=== PATIENT | male | born 1955 | race Caucasian/White ===

== ENCOUNTER 2021-12-25 09:09 | Emergency (ER) | payer OTHER ==
[~2021-12-25] VITALS: Ht 167.6 cm; Wt 72.6 kg
[~2021-12-25 09:09] MED LIST: Bactrim Ds Tab1 EACH PO; LISI20 PO; Norco 5-325 Ta1 EACH PO
[2021-12-25 10:58] LABS: BASOPHILS ABSOLUTE AUTO 0.06 K/mm3 (0.00-0.23); BASOPHILS PERCENT AUTO 1 % (0-2); EOSINOPHILS ABSOLUTE AUTO 0.02 K/mm3 (0.00-0.68); EOSINOPHILS PERCENT AUTO 0 % (0-6); Hemoglobin 13.3 g/dL (13.5-17.5); IMMATURE GRAN ABSOLUTE AUTO 0.03 K/mm3 (0.00-0.10); IMMATURE GRAN PERCENT AUTO 0 % (0-1); LYMPHOCYTES ABSOLUTE AUTO 1.58 K/mm3 (0.84-5.20); LYMPHOCYTES PERCENT AUTO 15 % (21-46); MONOCYTES ABSOLUTE AUTO 1.34 K/mm3 (0.16-1.47); MONOCYTES PERCENT AUTO 13 % (4-13); Mean Corpuscular Volume 89 fL (80-100); NEUTROPHILS ABSOLUTE AUTO 7.38 K/mm3 (1.96-9.15); NEUTROPHILS PERCENT AUTO 71 % (41-73); Platelet Count 330 K/mm3 (150-400); RDW Coefficient Variation 12.4 % (11.7-14.2); RDW Standard Deviation 40.1 fL (35.1-46.3); Red Blood Cell Count 4.29 M/mm3 (4.30-5.90); White Blood Cell Count 10.41 K/mm3 (4.00-11.30)
[2021-12-25 11:01] LABS: International Normalized Ratio 0.97; Prothrombin Time Results 10.2 Sec (9.7-11.5)
[2021-12-25 11:04] LABS: Alanine Aminotransfer (ALT/SGP 20 U/L (12-78); Albumin, Blood 3.1 g/dL (3.4-5.0); Albumin/Globulin Ratio 0.7 (0.8-1.8); Alk Phos 63 U/L (50-136); Anion Gap 8 mmol/L (6-16); Aspartate Aminotrans (AST/SGOT 18 U/L (12-37); Bilirubin, Total 0.3 mg/dL (0.1-1.0); Blood Urea Nitrogen 12 mg/dL (8-24); Bun/Creatinine Ratio 13.5 (12.0-20.0); CO2, Blood 24 mmol/L (21-32); Calcium, Blood 9.3 mg/dL (8.5-10.1); Chloride, Blood 104 mmol/L (98-108); Creatinine, Blood 0.89 mg/dL (0.60-1.20); Globulin, Blood 4.2 g/dL (2.2-4.0); Glomerular Filtration Rate >60 (60-); Glucose, Blood 116 mg/dL (70-99); Potassium, Blood 4.5 mmol/L (3.5-5.5); Sodium, Blood 136 mmol/L (136-145); Total Protein, Blood 7.3 g/dL (6.4-8.2)
== END 2021-12-25 11:14 | disposition left against medical advice (07) ==
LOC: ER 09:09
PROVIDERS: Physician Assistant
DX: S99.922A Unspecified injury of left foot, initial encounter (principal); W23.0XXA Caught, crushed, jammed, or pinched between moving objects, initial encounter; I10 Essential (primary) hypertension; Z88.0 Allergy status to penicillin; Z53.21 Procedure and treatment not carried out due to patient leaving prior to being seen by health care provider
CPT/HCPCS: 36415; 73660; 80053; 85025; 85610; 99283-25

== ENCOUNTER 2021-12-30 10:42 | Day surgery (SDC) | payer OTHER ==
[~2021-12-30] VITALS: Ht 167.6 cm; Wt 74.4 kg
[2021-12-30] MEDS ORDERED: 1/2 NS 250ml250 ML (11:38)
[2021-12-30] MEDS ORDERED: TELM80 PO (11:38)
--- NOTE | 2021-12-30 12:00 | NUR ---
DR. ZIMMERMAN AT THE [facility] AT 1145 FOR PRE OPEVAL AND PATIENT IS IN EXTREME PAIN. PATIENT HAS NOT HAD HOME PAIN MED TODAY AND DR. ZIMMERMAN ORDERED NORCO 5/325 MG PO TWO TABLETS NOW FOR PAIN. THIS WAS GIVEN TO THE PATIENT WITH A SMALL AMOUNT OF WATER.
--- NOTE | 2021-12-30 15:34 | NUR ---
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 ZIMMERMAN AT THE BEDSIDE AND SPOKE WITH THE PAITENT AND HIS . PATIENT PLACED ON VIPIN MONITOR AND CALL LIGHT IN REACH. VVS. RIGHT GROIN STABLE.
[2021-12-30] MEDS ORDERED: CLOP75 PO (16:15)
--- NOTE | 2021-12-30 17:13 | NUR ---
RIGHT GROIN STABLE. VOIDED 250 ML CLEAR YELLOW URINE. PULSES UNCHANGED. HOB UP 30 DEGREES.
--- NOTE | 2021-12-30 17:39 | NUR ---
PATIENT UP OOB, OFF MONITOR, RIGHT GROIN SITE STABLE. DRESSING CDI. NO HEMATOMA, NO BLEEDING. DRESSING SELF. AT THE BEDSIDE. PAIN TO THE LEFT GREAT TOE 10/30. ALL BELONGINGS GATHERED. REVIEWED DISCHARGE INSTRUCTIONS. PATIENT WILL RETURN FOR WORK ON THE RIGHT LEG AT A LATER DATE. 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 PATIENT AND VERBALIZED UNDERSTANDING OF INSTRUCTIONS. PATIENT TO THE WHEELCHAIR AND DISCHARGED HOME.
== END 2021-12-30 18:00 | disposition home or self-care (01) ==
LOC: MHTC 10:42
DX: I96 Gangrene, not elsewhere classified (principal); I70.229 Atherosclerosis of native arteries of extremities with rest pain, unspecified extremity; Z87.891 Personal history of nicotine dependence; I10 Essential (primary) hypertension; Z88.0 Allergy status to penicillin; Z79.899 Other long term (current) drug therapy
CPT/HCPCS: 76937; 99152; 99153; A9270; C1714; C1725; C1760; C1769; C1874; C1887; C1894; C2623; J1644; J2250; J3010; J7030; Q9967

== ENCOUNTER → 2022-01-05 | Outpatient (CLI) | payer OTHER ==
[~2022-01-05] MED LIST changes: +1/2 NS 250ml250 ML; +CLOP75 PO; +TELM80 PO
== END | disposition home or self-care (01) ==
LOC: PLD 13:58 → LAB SHORT 13:58 → LAB 13:58
DX: R23.4 Changes in skin texture (principal)
CPT/HCPCS: 88305; 88311

== ENCOUNTER → 2022-01-21 | Outpatient (CLI) | payer OTHER | END | disposition home or self-care (01) | LOC: LAB 12:53 → LAB SHORT 12:53 | DX: I96 Gangrene, not elsewhere classified (principal) | CPT/HCPCS: 87070; 87077; 87186; 87205 ==

== ENCOUNTER 2022-02-11 07:45 | Day surgery (SDC) | payer OTHER ==
[~2022-02-11 07:45] MED LIST changes: +MINO50 PO
[2022-02-11] MEDS ORDERED: XARELTO20 MG (08:22)
--- NOTE | 2022-02-11 16:18 | NUR ---
PT DRESSED, IV DC'D INTACT, DC'D BY WC, DRIVING PT HOME
== END 2022-02-11 16:32 | disposition home or self-care (01) ==
LOC: MHTC 07:45 → ORSCSDS 09:30 → ORD 09:30 → MHTC 16:32
DX: I70.263 Atherosclerosis of native arteries of extremities with gangrene, bilateral legs (principal); Z88.0 Allergy status to penicillin; Z87.891 Personal history of nicotine dependence
CPT/HCPCS: 37227; 37228; 75716; 75774; 76937; 85347; C1714; C1725; C1760; C1769; C1874; C1887; C1894; C2623; J1100; J1644; J2250; J2370; J2405; J2704; J3010; J7030; J7040; Q9967